=== PATIENT | female | born 1955 | race Caucasian/White ===

== ENCOUNTER 2017-01-11 09:02 | Day surgery (SDC) | payer OTHER ==
[2017-01-11] MEDS ORDERED: PROPOFOL 10 MG/ML VIAL IV ONE (15:11)
[2017-01-11] MEDS ORDERED: LIDOCAINE 2% MDV (20MG/ML) 20ML VIAL IV ONE (15:11)
[2017-01-11] MEDS ORDERED: MIDAZOLAM HCL 2MG/2ML VIAL IV ONE (15:11)
--- NOTE | 2017-01-12 18:30 | Operative Note ---
DATE OF SURGERY: 01/11/2017 OPERATION: COLONOSCOPY to the cecum. INDICATION: Prior history of polyps. The patient returns at this time for surveillance. It is not clear the type of polyps she had in the past. Her last examination was some 5 years ago according to her. ANESTHESIA: Intravenous sedation was administered by the department of anesthesiology and included Diprivan titrated to effect. PROCEDURE: Following informed consent from this alert individual including a discussion of the risks and benefits of the procedure and an opportunity for the patient to ask questions, the patient was in the left lateral decubitus position. A digital rectal examination was performed. No abnormalities were noted. Following this, the Olympus [id number] video colonoscope was inserted into the rectum without resistance. The rectal mucosa had a normal appearance with normal folds and distensibility. The colonoscope was advanced up through the bowel to the level of the cecum without much difficulty. Throughout the bowel the mucosa appeared normal, the folds were normal, and the bowel was fairly well distensible. The cecum was defined by noting the appendiceal orifice and ileocecal valve. The colon preparation was good. From the base of the cecum, the colonoscope was then withdrawn. No abnormalities were noted throughout withdrawal. Retroflexion in the rectum did reveal some hypertrophied anal papilla. The endoscope was straightened and removed. The patient tolerated the procedure well and was returned to the recovery area in stable condition. IMPRESSION: 1. Hypertrophied anal papillae. 2. Otherwise unremarkable colonoscopy to the cecum. RECOMMENDATIONS: The patient was advised to have recheck colonoscopy in 5 years' time or sooner if problems arise. Followup will otherwise be with Dr. Zia Greene. As always, thank you for allowing me to participate in the care of your patient. CC: Dr. Ramona MONTERO
== END 2017-01-11 11:08 | disposition home or self-care (01) ==
LOC: HOP 09:02
PROVIDERS: ATTEND Internal Medicine Gastroenterology
DX: Z12.11 Encounter for screening for malignant neoplasm of colon (principal); K62.89 Other specified diseases of anus and rectum
CPT/HCPCS: 00810; G0121